=== PATIENT | female | born 1995 | race Caucasian/White ===

== ENCOUNTER 2018-07-28 12:15 | Emergency (ER) | payer OTHER ==
[~2018-07-28] VITALS: Ht 167.6 cm; Wt 80.7 kg
--- NOTE | 2018-07-28 12:26 | NUR ---
PATIENT AMBULATED TO BED 2.
[2018-07-28 12:30] VITALS: BP 115/80
--- NOTE | 2018-07-28 12:30 | NUR ---
22 Y F BIB FAMILY C/O AB PAIN 09/13 STARTING YESTERDAY. PT REPORTS SHE HAD A TEST ON SUNDAY THAT CAME BACK POSITIVE. SORE BREASTS X 1 WEEK, N/V SINCE YESTERDAY. LAST MENSTRUAL Jun. BED IS DOWN, LOCKED, BED RAIL X 1, ERMD NOTIFIED. PMH-NONE RX- VITAMINS
--- NOTE | 2018-07-28 13:02 | NUR ---
PTS TEST CAME BACK NEGATIVE. PT REPORTS WHEN SHE WENT TO THE URGENT CARE ON SUNDAY THEY HAD TO DRAW BLOOD FOR A POSITIVE RESULT.
[2018-07-28 13:17] LABS: BASOPHILS % (AUTO) 0.4 % (0.0-2.0); EOSINOPHILS % (AUTO) 0.4 % (0.0-4.0); HEMATOCRIT 37.8 % (36-48); HEMOGLOBIN 12.1 g/dL (12.0-16.0); LYMPHOCYTES # (AUTO) 2.3 K/uL (2.5-16.5); LYMPHOCYTES % (AUTO) 28.5 % (20.5-51.1); MEAN CORPUSCULAR HEMOGLOBIN 26 pg (27-31); MEAN CORPUSCULAR HGB CONC 32 g/dL (33-37); MEAN CORPUSCULAR VOLUME 81.1 fL (80-94); MONOCYTES # (AUTO) 0.9 K/uL (0.8-1.0); MONOCYTES % (AUTO) 11.1 % (1.7-9.3); NEUTROPHILS # (AUTO) 4.9 K/uL (1.8-7.7); NEUTROPHILS % (AUTO) 59.6 % (42.2-75.2); PLATELET COUNT (AUTO) 279 K/uL (140-450); RED BLOOD CELL COUNT(AUTO) 4.66 MIL/uL (4.20-5.40); RED CELL DISTRIBUTION WIDTH 17.2 % (11.6-13.7); WHITE BLOOD COUNT (AUTO) 8.2 K/uL (4.8-10.8)
[2018-07-28 14:05] LABS: ANION GAP 11.3 (8-16); CARBON DIOXIDE 29.4 mmol/L (21-32); CREATININE 0.7 mg/dL (0.6-1.3); POTASSIUM 3.7 mmol/L (3.5-5.1)
[2018-07-28 14:20] LABS: TOTAL BILIRUBIN 0.4 mg/dL (0.0-1.0)
[2018-07-28 15:00] VITALS: BP 114/80
--- NOTE | 2018-07-28 15:00 | NUR ---
DR SCOTT AT BEDSIDE
--- NOTE | 2018-07-28 15:00 | NUR ---
Note satyayayo in ED - 07/28/18 at 1610 by [email or web address] Patient discharged with v/s stable BY DR SCOTT. Written and verbal after care instructions given and explained. Patient verbalized understanding. Ambulatory with steady gait. All questions addressed prior to discharge. Advised to follow up with PMD.
== END 2018-07-28 15:00 | disposition home or self-care (01) ==
LOC: MED 12:15
DX: R10.9 Unspecified abdominal pain (principal)
CPT/HCPCS: 36415; 76801; 80053; 81002; 81025; 84702; 85025; 86900; 86901; 99284; Q0092

== ENCOUNTER 2018-09-02 13:41 | Emergency (ER) | payer OTHER ==
[~2018-09-02] VITALS: Ht 167.6 cm; Wt 52.2 kg
[2018-09-02 14:03] VITALS: BP 121/72
--- NOTE | 2018-09-02 14:35 | NUR ---
PT AMB TO CHAIR E
--- NOTE | 2018-09-02 14:50 | NUR ---
PT BIB MOTHER WITH C/O NOT FEELING WELL, DEPRESSED, POOR APPETITE SINCE LAST WEEK AFTER HEARING BOYFRIEND WAS DIAGOSED WITH CANCER. DENIES CP/SOB/NVD. DENIES INTENT TO HARM HERSELF OR OTHERS.
--- NOTE | 2018-09-02 15:35 | NUR ---
LAB AT BEDSIDE
[2018-09-02 15:41] LABS: BASOPHILS # (AUTO) 0.1 K/uL (0.00-0.22); BASOPHILS % (AUTO) 0.7 % (0.0-2.0); EOSINOPHILS % (AUTO) 0.3 % (0.0-4.0); HEMOGLOBIN 11.8 g/dL (12.0-16.0); LYMPHOCYTES # (AUTO) 2.2 K/uL (2.5-16.5); LYMPHOCYTES % (AUTO) 24.2 % (20.5-51.1); MEAN CORPUSCULAR HEMOGLOBIN 27 pg (27-31); MEAN CORPUSCULAR HGB CONC 33 g/dL (33-37); MEAN CORPUSCULAR VOLUME 82.3 fL (80-94); MONOCYTES # (AUTO) 0.7 K/uL (0.8-1.0); MONOCYTES % (AUTO) 7.9 % (1.7-9.3); NEUTROPHILS % (AUTO) 66.9 % (42.2-75.2); PLATELET COUNT (AUTO) 304 K/uL (140-450); RED BLOOD CELL COUNT(AUTO) 4.38 MIL/uL (4.20-5.40); RED CELL DISTRIBUTION WIDTH 16.9 % (11.6-13.7)
[2018-09-02 16:00] LABS: APPEARANCE,URINE CLEAR (CLEAR); COLOR,URINE YELLOW (YELLOW)
[2018-09-02 16:01] LABS: BILIRUBIN,URINE NEGATIVE (NEGATIVE); BLOOD, URINE NEGATIVE (NEGATIVE); LEUKOCYTE ESTERASE ,URINE NEGATIVE (NEGATIVE); NITRITE, URINE NEGATIVE (NEGATIVE); PH,URINE 7.5 (5.0-9.0); UGLUCOSE NEGATIVE (NEGATIVE)
[2018-09-02 16:09] LABS: ALBUMIN 3.8 g/dL (3.4-5.0); ANION GAP 12.3 (8-16); CARBON DIOXIDE 28.8 mmol/L (21-32); CREATININE 0.7 mg/dL (0.6-1.3); FREE T4 (FREE THYROXINE) 1.12 ng/dL (0.76-1.46); POTASSIUM 4.1 mmol/L (3.5-5.1); THYROID STIMULATING HORMONE 0.81 uIU/mL (0.34-3.74); TOTAL BILIRUBIN 0.4 mg/dL (0.0-1.0)
[2018-09-02 16:15] VITALS: BP 120/70
== END 2018-09-02 16:15 | disposition home or self-care (01) ==
LOC: MED 13:41
DX: R53.83 Other fatigue (principal); R53.81 Other malaise; F41.9 Anxiety disorder, unspecified; R63.0 Anorexia
CPT/HCPCS: 36415; 80053; 81003; 81025; 84439; 84443; 85025; 99283